=== PATIENT | female | born 1960 | race Caucasian/White ===

== ENCOUNTER 2017-08-14 08:18 | Inpatient (IN) | payer OTHER ==
[~2017-08-14] VITALS: Ht 177.8 cm; Wt 91.2 kg
[~2017-08-14 08:18] MED LIST: ADULT LOW DOSE81 MG PO; LIPITOR10 MG PO; TOPROL XL100 MG PO
[2017-08-14 08:25] VITALS: BP 128/71
[2017-08-14] MEDS ORDERED: SYNTHROID150 MCG PO (08:30)
[2017-08-14 09:05] LABS: CALCIUM 8.3 mg/dL (8.5-10.1)
[2017-08-14 09:17] LABS: ALBUMIN 2.8 g/dL (3.4-5.0); TOTAL BILIRUBIN 0.9 mg/dL (<0.1-1.0); TOTAL PROTEIN 7.2 g/dL (6.4-8.2); TROPONIN-I LEVEL 0.08 ng/mL (<0.06)
[2017-08-14 09:19] LABS: HEMATOCRIT 26.2 % (37.0-47.0); HEMOGLOBIN 7.3 gm/dL (12.0-15.0); MCH 18.8 pg (26.0-34.0); MCV 67.2 fL (80.0-100.0); MPV 8.8 fl. (7.2-11.1); NUCLEATED RBCS 0 /100WBC; PLATELET COUNT* 290 thou/uL (150-400); RDW-CV 21.8 % (10.5-14.5); WBC 15.5 thou/uL (4.0-11.0)
[2017-08-14 09:37] LABS: ABSOLUTE LYMPHOCYTES 2.9 thou/uL (0.8-5.3); ABSOLUTE MONOCYTES 1.1 thou/uL (0.0-1.2); ABSOLUTE NEUTROPHILS 11.5 thou/uL (1.6-8.1); HYPOCHROMASIA 2+; PLATELET ESTIMATE ADEQUATE; POLYCHROMASIA 1+
[2017-08-14 09:38] LABS: ANISOCYTOSIS 2+; MICROCYTES 2+; POIKILOCYTOSIS 1+; TARGET CELLS 1+
[2017-08-14 12:19] LABS: URINE BILIRUBIN NEGATIVE (Negative); URINE BLOOD 2+ (Negative); URINE CLARITY CLEAR; URINE COLOR YELLOW; URINE GLUCOSE-RANDOM NEGATIVE (Negative); URINE KETONES NEGATIVE (Negative); URINE LEUKOCYTES-REFLEX NEGATIVE (Negative); URINE NITRITE-REFLEX NEGATIVE (Negative); URINE PROTEIN NEGATIVE (Negative); URINE UROBILINOGEN 0.2 E.U./dl (0.2-1.0)
[2017-08-14 12:28] LABS: SQUAMOUS >10 Many /LPF (0-3)
[2017-08-14 12:29] LABS: BACTERIA-REFLEX 1-9 Few /HPF (None Seen); CASTS None Seen /LPF (None Seen); CRYSTALS None Seen /LPF (None Seen); MUCUS 0-3 Light strn/LPF (None Seen); URINE RBC 0-2 Rare /HPF (0-2); URINE WBC-REFLEX 0-5 Rare /HPF (0-5)
[2017-08-14 13:56] VITALS: BP 130/82
[2017-08-14 14:30] VITALS: BP 151/83
--- NOTE | 2017-08-14 14:30 | NUR ---
PT UP TO ROOM 233. CALL LIGHT WITHIN REACH. PT ORIENTED TO ROOM.
--- NOTE | 2017-08-14 16:01 | EKG ---
[place] [address] ELECTROCARDIOGRAM REPORT Name: FREDI URRUTIA Room: [place] [address] ADM IN .R.#: [id number] Admission: 08/14/17 Attend Phys: Chi Lunsford MD Discharge: Date of : 58 Report #: [id number] THIS REPORT FOR: //name// [facility] Test Date: 2017-08-14 Test Time: 08:51:17 Pat Name: FREDIKENISHA URRUTIA Department: Room: [facility] Gender: F [employer] Coordinator: : 1960 Requested By: Edwin Sears Order Number: [id number] MD: Chito Zapien Measurements Intervals [place] Rate: 114 P: 69 HI: 149 QRS: 62 QRSD: 103 T: 15 QT: 340 QTc: 469 Interpretive Statements Sinus tachycardia Minimal ST depression, diffuse leads Compared to ECG 07/25/2016 08:08:46 ST (T wave) deviation now present Sinus rhythm no longer present Electronically Signed On 08-14-2017 16:00:53 CDT by Chito Zapien [email or web address] <ELECTRONICALLY SIGNED> By: Chito Zapien MD, FACC 08/14/17 1600 [phone] Chito Zapien MD, [facility] /EPI
--- NOTE | 2017-08-14 17:28 | NUR ---
PT UP TO FLOOR THIS AFTERNOON. IVF INFUSING. TOLERATING PO WELL. DENIES DIZZINESS. SOA WITH EXERTION
[2017-08-14 20:00] VITALS: BP 136/75
[2017-08-15] VITALS: BP 113/69
--- NOTE | 2017-08-15 03:12 | NUR ---
PT ALERT ORIENTED. UP AD DANI IN ROOM. TELEMETRY SHOWS ST. FEVER SPIKED 102.3. CULTURES ALREADY SENT EXCEPT FOR SPUTUM. UNABLE TO COLLECT. TYLENOL GIVEN. PT ALSO HAD EPISOID OF NAUSIA AT BEDTIME. ZOFRAN GIVEN FOR THAT. REFUSED GUAIFENESIN BECAUSE OF NAUSIA. WILL CONTINUE TO MONITOR.
[2017-08-15 04:00] VITALS: BP 128/65
[2017-08-15 08:00] VITALS: BP 139/84
[2017-08-15 09:14] LABS: HEMATOCRIT 21.9 % (37.0-47.0)
[2017-08-15 09:17] LABS: HEMOGLOBIN 6.1 gm/dL (12.0-15.0)
[2017-08-15 11:10] LABS: HEMATOCRIT 21.9 % (37.0-47.0)
[2017-08-15 11:14] LABS: HEMOGLOBIN 6.2 gm/dL (12.0-15.0)
[2017-08-15 11:29] LABS: APTT 28.7 Seconds (25.0-31.3); INR 1.1; PROTIME 10.7 Seconds (9.20-11.50)
[2017-08-15 11:53] VITALS: BP 114/61
--- NOTE | 2017-08-15 13:12 | NUR ---
CM SPOKE TO THE PATIENT TO DISCUSS HOME SITUATION, DISCHARGE PLANNING, AND TO INFORM OF THE ROLE OF CM. PATIENT ALERT AND ORIENTED. PATIENT INDEPENDNET AND ACTIVE. PATIENT WORKS OUTSIDE THE HOME. PATIENT RESIDES AT HOME WITH SPOUSE. PATIENT OWNS 0 DME. PATIENT HAS NO HX OF H OR SNF. CM WILL REMAIN AVAILABLE TO ASSIST AND FOLLOW NEEDED.
[2017-08-15 13:44] VITALS: BP 117/73; BP 121/72; BP 124/72; BP 127/77
[2017-08-15 15:08] LABS: ANA INTERPRETATION Positive (Negative)
--- NOTE | 2017-08-15 18:01 | NUR ---
VSS. SINUS TACH. NO PAIN REPORTED. UP AD DANI, PT STAYS IN BED. EATING ADEQUATELY. IN ROOM ENTIRE SHIFT. PT LEFT WITH NECESSARY ITEMS IN REACH. HGB 6.2, PT RECIEVED UNIT OF BLOOD, LABS YET TO BE DRAWN.
[2017-08-15 18:45] LABS: HEMATOCRIT 25.5 % (37.0-47.0); HEMOGLOBIN 7.6 gm/dL (12.0-15.0)
[2017-08-16] VITALS: BP 113/67
--- NOTE | 2017-08-16 01:24 | NUR ---
ALERT AND ORIENTED X 4. NAUSEATE EARLIER IN THE SHIFT. ZOFRAN GIVEN. SLEEPING MOST OF SHIFT. DENIES COMPLAINTS OF PAIN OR DISCOMFORT. NO SIGN OF DISTRESS AT THIS TIME. CONT. WITH PLAN OF CARE AT THIS TIME.
[2017-08-16 04:00] VITALS: BP 146/80
[2017-08-16 05:32] LABS: ABSOLUTE BASOPHILS 0.1 thou/uL (0.0-0.2); ABSOLUTE EOSINOPHILS 0.1 thou/uL (0.0-0.7); ABSOLUTE LYMPHOCYTES 2.3 thou/uL (0.8-5.3); ABSOLUTE MONOCYTES 1.6 thou/uL (0.0-1.2); ABSOLUTE NEUTROPHILS 9.4 thou/uL (1.6-8.1); HEMATOCRIT 25.8 % (37.0-47.0); HEMOGLOBIN 7.6 gm/dL (12.0-15.0); LYMPHOCYTES 16.9 %; MCH 20.8 pg (26.0-34.0); MCHC 29.6 g/dL (28.0-37.0); MCV 70.4 fL (80.0-100.0); MONOCYTES 11.7 %; MPV 8.7 fl. (7.2-11.1); NUCLEATED RBCS 0 /100WBC; PLATELET COUNT* 271 thou/uL (150-400); POLYS 69.4 %; RBC 3.66 mil/uL (4.20-5.00); RDW-CV 23.1 % (10.5-14.5); WBC 13.5 thou/uL (4.0-11.0)
[2017-08-16 05:46] LABS: ALBUMIN 2.3 g/dL (3.4-5.0); CALCIUM 7.6 mg/dL (8.5-10.1); MAGNESIUM 1.7 mg/dL (1.8-2.4); POTASSIUM 3.8 mmol/L (3.5-5.1); TOTAL BILIRUBIN 0.8 mg/dL (<0.1-1.0); TOTAL PROTEIN 5.8 g/dL (6.4-8.2)
[2017-08-16 06:15] LABS: PLATELET ESTIMATE ADEQUATE
[2017-08-16 06:16] LABS: HYPOCHROMASIA 2+; MICROCYTES 2+; POLYCHROMASIA 1+; TARGET CELLS Occasional
[2017-08-16 06:17] LABS: ANISOCYTOSIS 2+; POIKILOCYTOSIS 1+
--- NOTE | 2017-08-16 06:55 | NUR ---
PATIENT HAS SPOT TB TEST ORDERED. PLACED IN ISOLATION AND EDUCATION TO PATIENT.
[2017-08-16 08:00] VITALS: BP 127/86
--- NOTE | 2017-08-16 11:51 | CON ---
[address] [address] CONSULTATION Name: FREDI URRUTIA Room: [address] IN M.R.#: [id number] Admission: 08/14/17 Attend Phys: Chi Lunsford MD Discharge: Date of : 58 Report #: [id number] THIS REPORT FOR: //name// CC: Chi Lucero DATE OF SERVICE: 08/15/2017 INFECTIOUS DISEASE CONSULTATION ATTENDING PHYSICIAN: Chi Lunsford M.D. REASON FOR EVALUATION: Pneumonitis setting of chronic fevers. HISTORY OF PRESENT ILLNESS: Chart reviewed, patient examined. This is a 57-year-old with history of Graves' disease who presented with early progression of dyspnea, had noted fevers and palpitations with racing heart rate as well. On evaluation was found to be anemic for unclear reasons. Imaging suggested bilateral patchy infiltrates. She was then started empirically on Rocephin and azithromycin. On questioning, she denies any particular exposure history; however, she does note that fevers may have started as early as April of this year. They have been slowly progressing over the course of the last 2-3 weeks has had progressive weakness and then the shortness of breath more recently. She did not have a significant cough. She is not aware of weight loss. Her appetite has been fair. Followup imaging suggests bilateral pulmonary emboli. She is encephalopathic. ALLERGIES: None known. MEDICINES: Include cefdinir, azithromycin, guaifenesin, levothyroxine, aspirin, metoprolol, p.r.n. analgesics, antiemetics, melatonin, did receive ceftriaxone as well. PAST MEDICAL HISTORY: Graves' disease, history of hypertension, previous TIA. SOCIAL HISTORY: Nonsmoker, fairly regular ethanol use. FAMILY HISTORY: Noncontributory. REVIEW OF SYSTEMS: As above. Denies any pulmonary related, gastrointestinal related complaints other than what is noted above. PHYSICAL EXAMINATION:: GENERAL: Appears adequately nourished, in mild distress. VITAL SIGNS: T-max of 102.3, more recently 97.7, pulse 102, respirations 20, blood pressure 114/61[place] [address] CONSULTATION Name: FREDI URRUTIA Catherine Room: [address]#: [id number] Admission: 08/14/17 Attend Phys: Chi Lunsford MD Discharge: Date of : 58 Report #: [id number] SKIN: Warm, dry, no rashes. HEENT: Unremarkable. NECK: Supple. LUNGS: Diminished breath sounds. HEART: Regular, may have soft systolic murmur. ABDOMEN: Soft, nontender, nondistended. EXTREMITIES: No cyanosis. GENITOURINARY: Deferred. RECTAL: Deferred. LABORATORY DATA: Lactic acid initially was 3.2, certainly down to 2.3. Chest x-ray showed mild patchy alveolar opacities in the left lung. Electrolytes: Sodium 137, potassium 3.0, chloride 101, bicarbonate is 23, anion gap of 13. BUN and creatinine 7 and 1.0, glucose of 148, AST of 144, ALT of 96, albumin 2.9, total protein 7.2, estimated GFR 57. CBC: White count of 15.5, H and H 7.3 and 26.2, platelets of 290, did have 2900 lymphocytes. TSH elevated at 7.260. Urinalysis, 0-5 white cells. Iron was 15. Saturation was 5%. Ferritin 105. Urinary antigens for legionella and pneumococcus were not detected in prealbumin 9.4. Blood cultures sterile thus far. CT chest showed bilateral pulmonary emboli involving segmental and subsegmental branches in all 5 lobes, patchy mass-like infiltrates, bilateral lower lobes. CT abdomen and pelvis was otherwise unrevealing. ASSESSMENT AND PLAN: Pneumonitis in the setting of pulmonary emboli. This certainly could explain ongoing fevers. I suspect this may have occurring over weeks to months. In addition to the pulmonary embolus, she has anemia and certainly raises question of occult process as this may well be complications leading to a hypercoagulable state. Continue empiric antimicrobial therapy. I do not think there is any sputum forthcoming. We will go ahead and check some lab related to potential cause of hepatitis, have a peripheral smear done as well. We will monitor expectantly. <ELECTRONICALLY SIGNED> By: August Woo MD 08/16/17 1151 [id number] [id number] Woo MD /nt
[2017-08-16 12:00] VITALS: BP 119/80
--- NOTE | 2017-08-16 16:17 | NUR ---
AFTER DISCUSSING WITH DR HOPPER AND INFECTIOUS DISEASE AND REVIEWING POLICY THERE IS NO NEED FOR ISOLATION. PT REMOVED FROM ISOLATION. GI NOTIFIED. WILL CONTINUE PLAN FOR EGD/COLONOSCOPY
--- NOTE | 2017-08-16 18:29 | NUR ---
PT UP IN ROOM WITH STEADY GAIT. PT DENIES PAIN OR COUGH. PLAN FOR EGD/COLONOSCOPY IN AM. PT TOLERATING PO WELL
[2017-08-16 20:00] VITALS: BP 113/63
[2017-08-17] VITALS (7 sets, daily range): BP systolic 116–137; BP diastolic 63–74
--- NOTE | 2017-08-17 01:49 | NUR ---
PATIENT ALERT AND ORIENTED X 4, IV IRON INFUSION ORDERED ON DAY SHIFT BUT WASN'T AVAILABLE UNTIL YESTERDAY EVEN. IV IRON INFUSED WITHOUT DIFFICULTIES. PATIENT IS RESTING COMFORTABLY, WILL CONT. TO MONITOR.
[2017-08-17 04:06] LABS: CMV IgM Abs <30.0 AU/mL (0.0-29.9)
[2017-08-17 07:10] LABS: HEPATITIS B SURFACE AG Negative (Negative)
--- NOTE | 2017-08-17 15:14 | CON ---
[address] [address] CONSULTATION Name: FREDI URRUTIA Room: [place] [address] ADM IN [facility]#: [id number] Admission: 08/14/17 Attend Phys: Chi Lunsford MD Discharge: Date of : 58 Report #: [id number] THIS REPORT FOR: //name// CC: Chi Lucero DATE OF SERVICE: 08/16/2017 ATTENDING PHYSICIAN: Chi Lunsford MD The patient is located in room 233. INDICATION FOR CONSULTATION: Pulmonary emboli and then left lower lobe infiltrate. HISTORY OF PRESENT ILLNESS: The patient is a 57-year-old female, essentially nonsmoker, sent to the Emergency Room because of shortness of breath and cough. She has had some low-grade fever over 2-3 months this year, started out at 99, slowly gotten the higher to 102 degrees usually every evening, but she denies any drenching night sweats. She felt bad when she had the fever. She has not had much of a fever when she has been in the hospital. About 36 hours ago, she had a CAT scan of the chest and followup for her chest x-ray which showed a patchy left lower lobe infiltrate and also right lower lobe infiltrate. Her previous chest x-ray from July 2016 that I reviewed was within normal limits. She then on this CAT scan of her chest, which was not a CT angio of the chest had multiple pulmonary emboli in the left lower lung ramos and also in the right lower lobe interlobar artery and left lower lobe interlobar artery and there were several of them. It was not an occlusive clot, but definitely some clots were noted. She denies having DVT and she has not had venous Dopplers done yet. She has had anemia, so she has been more short of breath when she walks across the room. She denies any prior history of pneumonia or asthma. No other occupational exposure. I was asked to see her. PAST MEDICAL HISTORY: She has had a history of anemia for the past 6 months. She has had a workup, etiology is unclear. She had a TIA back in July 2016. Again, etiology was uncertain. She has had elevated troponin levels and again possible stroke. Questionable history of Graves disease in the past, treated with radioactive therapy and then hypertension and TIAs noted. ALLERGIES: She has no known medical allergies. OUTPATIENT MEDICATIONS: Included aspirin 81 mg daily, Lipitor 10 mg at bedtime and was also on metoprolol 100 mg daily and levothyroxine 150 mcg daily. FAMILY HISTORY: Negative for [place] [address] CONSULTATION Name: GHADAFREDI Catherine Room: [address] IN ..#: [id number] Admission: 08/14/17 Attend Phys: Chi Lunsford MD Discharge: Date of : 58 Report #: [id number] SOCIAL HISTORY: The patient works in [employer]. She is a nonsmoker, nondrinker. She tried it when she was in high school, but never smoked for more than 3-6 months. Denies any alcohol or illicit drug use. Her is a nonsmoker also. She lives at home with her . REVIEW OF SYSTEMS: A 14-point review of systems was reviewed and negative. She denies any occupational exposure. No exposure to histoplasmosis or TB and has never had any lung infections before as noted above. No history of recent travel. PHYSICAL EXAMINATION: GENERAL: A 57-year-old female in no acute distress. VITAL SIGNS: Stable. Blood pressure is 127/86 on no pressors, heart rate is 88, respirations are 16 at rest and her temperature is 36.2 degrees. She is 5 feet 10 inches tall, weight is 86 kilograms or 189 pounds. BMI is 27. Room air sats 95-96%. HEENT: Unremarkable. No increase in jugular venous pressure. Pharynx is clear. NECK: Supple without nodes. CHEST: Shows a few rhonchi and minimal dullness at the left lung base. Right chest is clear without wheeze or rhonchi. CARDIOVASCULAR: Regular rate and rhythm without murmur, gallop or rub. Heart rate is 88. No S3 is noted. ABDOMEN: Soft, without masses or megaly. DIAGNOSTIC DATA: CT of the chest was noted as above with bilateral pulmonary emboli and right lower lobe and left lower lobe interlobar arteries. No definite pulmonary hypertension noted. No masses or tumor. She has a left lower lobe infiltrate, which could be a possible infarct and a small left effusion. Patchy right lower lobe infiltrate is also noted. Chest x-ray was noted as above. LABORATORY DATA: Initial hemoglobin was 6.2 a day or two ago. Today is 7.6, white count is 13,500, hematocrit is 25 and MCV was 70. Iron studies are pending. Platelets are 271,000, normal differential. Sodium is 141, potassium is 3.8, carbon dioxide is 21, BUN is 3, creatinine is 1.0, glucose is 109, magnesium is 17, being repeated, calcium 7.6, being followed and total bilirubin 0.8, AST is elevated at 182, ALT is 128. Troponin is barely bumped at 0.08, albumin is 2.3 and prealbumin is 9.4. TSH is 7.26, slightly high. IMPRESSION: 1. Bilateral pulmonary emboli, atypical setting. 2. Pulmonary infiltrates, left lower lobe infiltrate, small left effusion, etiology unclear whether this is acute infectious etiology related to pulmonary infarct or collagen vascular disease or auto inflammatory [place] [address] CONSULTATION Name: FREDI URRUTIA Room: [address] IN .R.#: [id number] Admission: 08/14/17 Attend Phys: Chi Lunsford MD Discharge: Date of : 58 Report #: [id number] are pending. Acute are also pending and histo is pending. Rheumatoid factor is negative. GREG was positive and we do not have a titer. Her titer is pending. Rheumatoid factor was negative. PLAN: Would continue with therapy. Also, on Lovenox 80 mg subQ q.12 hours. I think it is appropriate high dose therapy. TIA history bothers me a little bit, but she was on aspirin for that. So hopefully, she would not have any bleeding diathesis. She understands that. Would either treat 6 months with warfarin or NOAC such as Xarelto. Need to follow up chest x-ray and CT of the chest in about a month to see if she has any further pulmonary emboli. Also see if that left lower lobe infiltrate is cleared. If not, she may be stable enough at that time to take her off the Xarelto for a couple days, may bridge with Lovenox and see about doing an outpatient bronchoscopy looking at the left lower lobe, again some cultures and specimens whether this is a collagen vascular disease or whatever may have predisposed her to have pulmonary emboli. I do not think this represents lung cancer at least at this time. CT of the abdomen was negative. She has no history of any hypercoagulable family members. May consider hypercoagulable workup in the future if this would recur again. Also, an echocardiogram at some point in time, I think venous Dopplers are going to be checked also. Thanks for allowing me to participate in this interesting lady's care. We will follow up along with you while she is in the hospital and we will proceed from there. No need for steroid therapy at least at this time. She is on oral antibiotics with azithromycin and cefdinir at this time. She will follow with that. <ELECTRONICALLY SIGNED> By: Nguyễn Etienne MD 08/17/17 1514 1204 [id number] Etienne MD /nt
[2017-08-17 17:56] LABS: HEMATOCRIT 30.2 % (37.0-47.0); HEMOGLOBIN 8.8 gm/dL (12.0-15.0); MCH 20.4 pg (26.0-34.0); MCV 70.4 fL (80.0-100.0); MPV 8.3 fl. (7.2-11.1); RBC 4.29 mil/uL (4.20-5.00); RDW-CV 23.8 % (10.5-14.5); WBC 18.5 thou/uL (4.0-11.0)
[2017-08-17 18:03] LABS: APTT 31.1 Seconds (25.0-31.3); INR 1.1; PROTIME 10.6 Seconds (9.20-11.50)
--- NOTE | 2017-08-17 18:57 | NUR ---
PATIENT RESTING IN BED. PATIENT WENT FOR EGD/COLONOSCOPY THIS AFTERNOON WITHOUT INCIDENT. PATIENT HAS GOOD APPETITE UPON RETURN. PATIENT IS UP AD DANI IN ROOM. PATIENT SCHEDULED FOR BRONCHOSCOPY TOMORROW, CONSENT SIGNED. PATIENT HAS COMPALINTS OF MILD PAIN WITH COUGHING TO RIGHT LUNG, TYLENOL GIVEN. PATIENT STARTED ON HEPARIN DRIP THIS EVENING, WITH ORDERS TO HOLD 3 HOURS PRIOR TO BRONCHOSCOPY. PATIENT DENIES ANY NEEDS AT THIS TIME. CALL LIGHT WITHIN REACH. WILL CONTINUE TO MONITOR.
[2017-08-18] VITALS: BP 140/78
[2017-08-18 00:37] LABS: ABSOLUTE BASOPHILS 0.1 thou/uL (0.0-0.2); ABSOLUTE LYMPHOCYTES 0.9 thou/uL (0.8-5.3); ABSOLUTE MONOCYTES 0.3 thou/uL (0.0-1.2); ABSOLUTE NEUTROPHILS 14.1 thou/uL (1.6-8.1); BASOPHILS 0.5 %; EOSINOPHILS 0.1 %; HEMATOCRIT 28.2 % (37.0-47.0); HEMOGLOBIN 8.4 gm/dL (12.0-15.0); LYMPHOCYTES 5.9 %; MCH 20.6 pg (26.0-34.0); MCHC 29.6 g/dL (28.0-37.0); MCV 69.5 fL (80.0-100.0); MONOCYTES 1.7 %; MPV 8.6 fl. (7.2-11.1); NUCLEATED RBCS 1 /100WBC; PLATELET COUNT* 297 thou/uL (150-400); POLYS 91.8 %; RBC 4.06 mil/uL (4.20-5.00); RDW-CV 23.8 % (10.5-14.5); WBC 15.3 thou/uL (4.0-11.0)
[2017-08-18 01:13] LABS: ALBUMIN 2.3 g/dL (3.4-5.0); CALCIUM 8.2 mg/dL (8.5-10.1); CREATININE 0.8 mg/dL (0.6-1.3); POTASSIUM 3.2 mmol/L (3.5-5.1); TOTAL BILIRUBIN 0.5 mg/dL (<0.1-1.0)
[2017-08-18 04:00] VITALS: BP 129/80
--- NOTE | 2017-08-18 05:50 | NUR ---
VSS. NPO since [place] for bronchoscopy today. Denies complaints. Remains on Heparin gtt. Will continue to monitor.
[2017-08-18 08:00] VITALS: BP 134/83
[2017-08-18 11:10] LABS: ANTI-DNA SCREEN 1 IU/mL (0-9); ANTI-RNP <0.2 AI (0.0-0.9)
--- NOTE | 2017-08-18 11:58 | NUR ---
RECEIVED REPORT FROM LUKE ESTRELLA. ASSUMED CARE OF PT AROUND 0730. PT A&O X4, A BIT ANXIOUS ABOUT UPCOMING BRONCHOSCOPY TODAY. REASSURANCE GIVEN. VSS. O2 SAT 93% ON RA. CARDAIC MONITOR IN PLACE TRACING ST. AM ASSESSMENT AND VITALS COMPLETED CHARTED. PT NPO FOR BRONCHOSCOPY. PT DENIES PAIN OR DISCOMFORT SO FAR THIS SHIFT. PT UP AD DANI IN ROOM, TOOK SHOWER THIS AM. AT BEDSIDE. PT CURRENTLY DOWNSTAIRS FOR PROCEDURE.
--- NOTE | 2017-08-18 12:04 | NUR ---
CONTINUE TO FOLLOW, PT OFF UNIT FOR BRONCH. MET WITH SPOUSE. HE DENIES ANY CONCERNS OR DC NEEDS AT THIS TIME. HE STATES PT IS HOPEFUL TO GO HOME SOON
[2017-08-18 14:05] VITALS: BP 134/77
--- NOTE | 2017-08-18 15:58 | NUR ---
PT RETURNED TO TELE FLOOR AROUND 1400. VSS. PT A&OX4. O2 93% ON RA, PLACED ON 1L PER NC AND SATS INCREASED TO 94%. PT PROGRESSED TO CLEAR LIQUIDS AND DOING WELL WITH THAT. WILL HAVE REGULAR DIET FOR DINNER. HEPARIN RESTARTED AT 1500UNITS/HR PER ORDER FROM DR. ISAAC - ORDER RECEIVED TO NOT GIVE ADDITIONAL BOLUS. ORDER ALSO RECEIVED TO STOP HEPARIN GTT ONE HOUR POST XARALTO ADMINISTRATION. PT CURRENTLY RESTING IN BED WITH AT BEDSIDE. CALL LIGHT IS WITHIN REACH. LOW RISK FALL PRECAUTIONS ARE IN PLACE. WCTM FOR DURATION OF SHIFT. HOURLY ROUNDING PERFORMED.
[2017-08-18 16:00] VITALS: BP 104/56; BP 98/60
--- NOTE | 2017-08-18 19:25 | NUR ---
VSS. PT REMAINS A&O X4. O2 SAT 94%, NOW ON RA. PT ATE DINNER WITHOUT ISSUE. GAG AND SWALLOW REFLEX FULLY INTACT. IV PATENT AND INFUSING HEPARING AND IVF. PT DENIES PAIN OR DISCOMFORT. AT BEDSIDE THROUGHOUT SHIFT BUT HAS SINCE GONE HOME. PT UP AD DANI IN ROOM. PT HOPING TO GO HOME TOMORROW. PT LEFT RESTING IN BED WATCHING TV. CALL LIGHT IS WITHIN REACH, LOW FALL RISK PRECAUTIONS IN PLACE. HORULY ROUNDING PERFORMED.
[2017-08-18 19:40] VITALS: BP 117/63
[2017-08-19 00:26] VITALS: BP 134/97
[2017-08-19 04:47] VITALS: BP 134/77
--- NOTE | 2017-08-19 06:16 | NUR ---
Pt states she is anticipating being discharged today. Heparin gtt running until one hour after first dose of Xarelto last night. Up ad baudilio in room. VSS. Requested Tylenol for c/o sore throat secondary to procedure. Will continue to monitor.
[2017-08-19 08:00] VITALS: BP 127/76
[2017-08-19] MEDS ORDERED: FOLIC ACID1 MG PO (09:37)
[2017-08-19] MEDS ORDERED: VENTOLIN HFA 1818 GM INH (09:37)
[2017-08-19] MEDS ORDERED: XARELTO15 MG PO (09:37)
[2017-08-19] MEDS ORDERED: CEFDINIR300 MG PO (09:37)
[2017-08-19] MEDS ORDERED: IRON325 PO (09:37)
[2017-08-19] MEDS ORDERED: MUCINEX600 MG PO (09:37)
[2017-08-19] MEDS ORDERED: XARELTO20 MG PO (09:37)
[2017-08-19 10:36] VITALS: BP 127/76
--- NOTE | 2017-08-19 11:02 | NUR ---
Pt discharging to home today. CM provided Pt with Xarelto copay card. in room and will transport
--- NOTE | 2017-08-19 11:07 | NUR ---
RECEIVED REPORT FROM SAMEER BUTLER. ASSUMED CARE OF PT AROUND 729. PT A&O X4, VSS, O2 SAT >90% ON RA. EMPLOYMENT REPRESENTATIVE IN PLACE TRACNIG SR. AM ASSESSMENT AND VITALS COMPLETED CHARTED. PT ANXIOUS TO GET HOME. PT EATING AND DRINKING WIHTOUT ISSUE. PT REPORTS SLIGHT HEADACHE THAT HAS MUCH IMPROVED WITH PAIN MEDICATION GIVEN BY NIGHT NURSE. SPOUSE AT BEDSIDE. DISCHARGE ORDERS RECEIVED. DISCHARGE COMPLETED CHARTED. DISCHARGE SUMMARY GONE OVER WITH PT. PT COMMUNICATES UNDERSTANDING. PT AWARE OF F/U APPOINTMENTS. SCRIPTS GIVEN. CARE NOTES GIVEN. IV AND EMPLOYMENT REPRESENTATIVE REMOVED. ALL BELONGINGS GATHERED AND SENT WITH THE PT. VSS AT TIME OF DC. PT LEFT UNIT IN WC WITH NURSING STAFF. PT LEFT HOSPITAL IN CAR WITH SPOUSE.
--- NOTE | 2017-08-21 07:55 | PROC ---
[address] [address] PROCEDURE REPORT Name: FREDI URRUTIA Catherine Room: [address] IN [facility]#: [id number] Admission: 08/14/17 Attend Phys: Chi Lunsford MD Discharge: 08/19/17 Date of : 58 Report #: [id number] THIS REPORT FOR: //name// CC: Dr. Martha Lucero MD DATE OF SERVICE: 08/18/2017 PROCEDURE: Inpatient bronchoscopy note. ATTENDING PHYSICIAN: Chi Lunsford MD LOCATION: She is located in room [facility]. PREOPERATIVE DIAGNOSES: Left lower lobe pneumonia, chronic fevers. POSTOPERATIVE DIAGNOSES: Left lower lobe pneumonia, chronic fevers. No endobronchial lesions, moderate secretions. COMPLICATIONS: None. INDICATIONS: The patient is a 57-year-old female, nonsmoker with fevers off and on for the last 4 months. She has some small pulmonary emboli bilaterally. She has right anterior tibial vein clots in her legs, but no deep venous thrombosis. She is on IV heparin after subcutaneous Lovenox. Her room air O2 sats are 97%. She is not able to cough up any sputum. Bronchoscopy is indicated to evaluate for endobronchial lesion to obtain specimens. Indications, benefits, risks of bronchoscopy, possible biopsy were explained to the patient. She understood and agreed. Informed consent was obtained. Prior to the procedure, the patient was n.p.o. She had appropriate verbal timeout, was correct procedure for the correct patient. She was off her heparin for 3 hours at 9:00 a.m. from an IV heparin drip. PREMEDICATION: Consists of meperidine 50 mg, Robinul 0.1 mg IM and then she had Versed 4 mg slow IV push pre and intraoperatively in 1 mg increments, also had fentanyl 50 mcg total IV push and 25 mg increments. O2 was at 4 liters per nasal cannula, O2 sats stayed at 97% throughout the procedure. DESCRIPTION OF PROCEDURE: She had bilateral boggy nasal turbinates. I was not able to get pass the scope down either nares because of the turbinates and nasal septal deviation to the right. We then used an oral bite [place] [address] PROCEDURE REPORT Name: FREDI URRUTIA Room: [address] IN [facility]#: [id number] Admission: 08/14/17 Attend Phys: Chi Lunsford MD Discharge: 08/19/17 Date of : 58 Report #: [id number] attempts, vocal cords were normal, they opposed normally. Trachea and yolis were normal. Yolis was sharp. Right lung was normal without any endobronchial lesions or mucosal abnormalities. Left lung was normal without any endobronchial lesions or mucosal abnormalities. Minimal erythema was noted in the left lower lobe. She had some moderate thin clear secretions. Specimens obtained from left lower lobe include a microbrush and a bronchial wash for Gram stain, C and S, AFB or smear and culture and fungal smear with culture. Slides x 3 and a second bronchial wash were sent from cytology to rule out collagen vascular disease and possibly infectious or inflammatory etiologies. Malignancy was thought to be less likely, but still considered. Bronchoscope was then withdrawn without incident. The patient tolerated the procedure well without complications. Working diagnosis at the end of the procedure was left lower lobe pneumonia, could be related to pulmonary infarct from pulmonary emboli, could be related to collagen vascular disease and a positive GREG. The patient will call me at office in 1 week for results. If they are all negative, then we will do a followup chest x-ray in 3-4 weeks and possibly CAT scan to make sure; 1. Pulmonary emboli are resolved. 2. Her left lower lobe infiltrate clears up. No complications to the above procedure. I will defer to primary care physicians. We will put her back on IV heparin. She may be on Xarelto for a day or two. May be able to be discharged in 24-48 hours proceed from there. Again, no complications as above. <ELECTRONICALLY SIGNED> By: Britany Orosco MD 08/21/17 0755 1303 [id number] Etienne MD /nt
--- NOTE | 2017-09-01 13:09 | CON ---
[address] [address] CONSULTATION Name: FREDI URRUTIA Room: [address]#: [id number] Admission: 08/14/17 Attend Phys: Chi Lunsford MD Discharge: 08/19/17 Date of : 58 Report #: [id number] THIS REPORT FOR: //name// CC: Chi Lucero MD DICTATED BY: Dayanara Heller [facility] DATE OF SERVICE: 08/16/2017 Please note, at the time of this dictation the patient was seen and physically examined by myself. REASON FOR CONSULTATION: Acute anemia. HISTORY OF PRESENT ILLNESS: This is a 57-year-old female who presented to the Emergency Room on the with a 3-day history of worsening of shortness of air and increased fatigue. The patient waited until Monday morning to see her primary and she was advised to go to the Emergency Room at that time. Over the last 3 months since 04/24/2017, she has had a fever off and on in which she has been taking ibuprofen on a nightly basis to help with that. She has had a cough and she has had issues with heart palpitations as well. It was noted on admission she had a hemoglobin that went down to 6.1. She has gotten 1 unit of blood; she is now up to 7.6. She denies any nausea or vomiting, loss of appetite or weight loss. She states her bowels move daily, soft and formed, to every other day. She has not noticed any bright red blood or any melena at this time. The patient has never had any upper or lower endoscopy studies done at this time. She denies any abdominal pain with all of her symptomatology at the present time. ALLERGIES: No known drug allergies. MEDICATIONS: From home, have been an aspirin daily as well as metoprolol and levothyroxine. PAST MEDICAL HISTORY: She had Graves disease post radiation ablation of her thyroid and hypertension or palpitations. PAST SURGICAL HISTORY: Ablation of her thyroid. FAMILY HISTORY: Negative for any GI or female cancers. SOCIAL HISTORY: Denies any alcohol, tobacco or illegal drug use. REVIEW OF SYSTEMS: Twelve-point review [place] [address] CONSULTATION Name: FREDI URRUTIA Room: [address]#: [id number] Admission: 08/14/17 Attend Phys: Chi Lunsford MD Discharge: 08/19/17 Date of : 58 Report #: [id number] except what is mentioned in the HPI. PHYSICAL EXAMINATION: VITAL SIGNS: Temperature 36.6, pulse 100, respirations 16, blood pressure 119/80. HEART: Regular rate and rhythm. LUNGS: Clear. ABDOMEN: Soft, positive bowel sounds in all 4 quadrants with no masses or tenderness noted. LABORATORY DATA: Hemoglobin on admission was 7.3 and she dropped down to 6.1, received a unit of blood, she is back up to 7.6, hematocrit 25.8, white count on admission was 15.5, she is now 13.5, platelets 271. Sodium 141, potassium 3.8, chloride 107, CO2 of 21, BUN is 3, creatinine is 1.0, GFR is 57, and glucose is 109. Total bilirubin is 0.8, alkaline phosphatase 68, ALT 128, AST 182. Haptoglobin is 236. ESR is 60, RA is negative. GREG was positive. CT of the abdomen and pelvis showed some likely liver cyst, otherwise negative. Chest x-ray showed some mild patchy opacities mainly in the left. CT of the chest confirmed bilateral PEs. Ultrasound of the legs is still pending. IMPRESSION: 1. Acute anemia, noted that in 07/2016 hemoglobin was 14.8. 2. Elevated liver function tests. 3. Bilateral pulmonary embolism. 4. Shortness of air. 5. Leukocytosis. 6. Fever of unknown origin. PLAN: 1. EGD and colonoscopy tomorrow with Dr. Higuera. 2. Acute hepatitis panel pending. We will order ASMA and AMA due to the positive GREG. 3. Further recommendations to be made after the above has been noted. 4. Hold aspirin and Lovenox tonight and in a.m. Thank you for allowing us to participate in this patient's care. Please do not hesitate to call with any questions in regard to this consult. I have personally seen and examined the patient and reviewed labs and imaging studies. The patient with bilateral pulmonary embolism who presents with acute anemia with hemoglobin of 6.2 and abnormal transaminases, 3-4 times normal, with normal alkaline phosphatase and bilirubin. There is a concern that the patient may also have TB and she is undergoing testing. Initially our nurse practitioner had scheduled the patient for EGD and colonoscopy; I will defer this at this time. We will await the result of [place] [address] CONSULTATION Name: FREDI URRUTIA Room: [address] IN M.R.#: [id number] Admission: 08/14/17 Attend Phys: Chi Lunsford MD Discharge: 08/19/17 Date of : 58 Report #: [id number] bronchoscopy on Monday. Based on finding we will make recommendation. Meanwhile, we will continue monitoring the H and H and transfuse as needed. <ELECTRONICALLY SIGNED> By: Mirna Albarran MD 09/01/17 1309 1331 [id number] Albarran MD /nt
--- NOTE | 2017-09-01 13:09 | CON ---
[address] [address] CONSULTATION Name: GHADAFREDI Catherine Room: [address] IN ..#: [id number] Admission: 08/14/17 Attend Phys: Chi Lunsford MD Discharge: 08/19/17 Date of : 58 Report #: [id number] THIS REPORT FOR: //name// CC: Chi Lucero DATE OF SERVICE: 08/16/2017 ADDENDUM I have personally seen and examined the patient and reviewed labs and imaging studies. The patient with bilateral pulmonary embolism who presents with acute anemia with hemoglobin of 6.2 and abnormal transaminases, 3-4 times normal, with normal alkaline phosphatase and bilirubin. There is a concern that the patient may also have TB and she is undergoing testing. Initially our nurse practitioner had scheduled the patient for EGD and colonoscopy; I will defer this at this time. We will await the result of TB since the patient has bronchoscopy on Monday. Based on finding we will make recommendation. Meanwhile, we will continue monitoring the H and H and transfuse as needed. <ELECTRONICALLY SIGNED> By: Mirna Albarran MD 09/01/17 1309 1524 [id number] Albarran MD /nt
== END 2017-08-19 11:21 | disposition home or self-care (01) | DRG 166 ==
LOC: M.ERS 08:18 → M.TBA-ER 10:26 → M.2W 10:26
PROVIDERS: Emergency Medicine Emergency Medical Services; Internal Medicine; Internal Medicine Gastroenterology; Specialist; ADMIT Internal Medicine
PROC: 0B9J8ZZ Drainage of Left Lower Lung Lobe, Via Natural or Artificial Opening Endoscopic (ICD-10-PCS; 2017-08-14)
PROC: 0DJD8ZZ Inspection of Lower Intestinal Tract, Via Natural or Artificial Opening Endoscopic (ICD-10-PCS; principal; 2017-08-17)
PROC: 0DB98ZX Excision of Duodenum, Via Natural or Artificial Opening Endoscopic, Diagnostic (ICD-10-PCS; principal; 2017-08-17)
PROC: 0DB68ZX Excision of Stomach, Via Natural or Artificial Opening Endoscopic, Diagnostic (ICD-10-PCS; principal; 2017-08-17)
PROC: 0BDJ8ZX Extraction of Left Lower Lung Lobe, Via Natural or Artificial Opening Endoscopic, Diagnostic (ICD-10-PCS; 2017-08-18)
DX: J15.9 Unspecified bacterial pneumonia (principal); K29.71 Gastritis, unspecified, with bleeding; I26.99 Other pulmonary embolism without acute cor pulmonale; D68.59 Other primary thrombophilia; I82.431 Acute embolism and thrombosis of right popliteal vein; I82.441 Acute embolism and thrombosis of right tibial vein; I10 Essential (primary) hypertension; J33.8 Other polyp of sinus; J34.2 Deviated nasal septum; K31.9 Disease of stomach and duodenum, unspecified; K64.4 Residual hemorrhoidal skin tags; D50.9 Iron deficiency anemia, unspecified; E05.00 Thyrotoxicosis with diffuse goiter without thyrotoxic crisis or storm; N93.9 Abnormal uterine and vaginal bleeding, unspecified; E87.6 Hypokalemia; Z79.82 Long term (current) use of aspirin; Z79.899 Other long term (current) drug therapy; Z98.891 History of uterine scar from previous surgery

== ENCOUNTER 2017-09-18 11:48 | Emergency (ER) | payer OTHER ==
[~2017-09-18] VITALS: Ht 180.3 cm; Wt 68.0 kg
[~2017-09-18 11:48] MED LIST changes: +CEFDINIR300 MG PO; +FOLIC ACID1 MG PO; +IRON325 PO; +MUCINEX600 MG PO; +SYNTHROID150 MCG PO; +VENTOLIN HFA 1818 GM INH; +XARELTO15 MG PO; +XARELTO20 MG PO
[2017-09-18 12:29] LABS: ABSOLUTE BASOPHILS 0.1 thou/uL (0.0-0.2); ABSOLUTE EOSINOPHILS 0.2 thou/uL (0.0-0.7); ABSOLUTE LYMPHOCYTES 1.9 thou/uL (0.8-5.3); ABSOLUTE MONOCYTES 0.7 thou/uL (0.0-1.2); ABSOLUTE NEUTROPHILS 7.4 thou/uL (1.6-8.1); BASOPHILS 0.7 %; EOSINOPHILS 2.4 %; HEMATOCRIT 28.6 % (37.0-47.0); HEMOGLOBIN 8.9 gm/dL (12.0-15.0); LYMPHOCYTES 18.6 %; MCH 24.9 pg (26.0-34.0); MCV 80.2 fL (80.0-100.0); MONOCYTES 6.7 %; MPV 8.9 fl. (7.2-11.1); NUCLEATED RBCS 0 /100WBC; PLATELET COUNT* 288 thou/uL (150-400); POLYS 71.6 %; RBC 3.57 mil/uL (4.20-5.00); RDW-CV 23.2 % (10.5-14.5); WBC 10.3 thou/uL (4.0-11.0)
[2017-09-18 12:32] LABS: ANION GAP 12 mmol/L (7-16); APTT 33.7 Seconds (25.0-31.3); BUN 11 mg/dL (7-18); CHLORIDE 102 mmol/L (98-107); CO2 23 mmol/L (21-32); GLUCOSE 125 mg/dL (70-99); INR 1.2; POTASSIUM 3.3 mmol/L (3.5-5.1); PROTIME 11.7 Seconds (9.20-11.50); SODIUM 137 mmol/L (136-145)
[2017-09-18 12:41] LABS: ALBUMIN 3.4 g/dL (3.4-5.0); ALKALINE PHOSPHATASE 79 U/L (46-116); SGOT 62 U/L (15-37); SGPT 26 U/L (30-65); TOTAL BILIRUBIN 1.9 mg/dL (<0.1-1.0); TOTAL PROTEIN 7.8 g/dL (6.4-8.2); TROPONIN-I LEVEL <0.06 ng/mL (<0.06)
[2017-09-18 13:13] LABS: HYPOCHROMASIA 1+; PLATELET ESTIMATE ADEQUATE
[2017-09-18 13:14] LABS: ANISOCYTOSIS 1+; MACROCYTES 1+
[2017-09-18 14:17] LABS: URINE BILIRUBIN NEGATIVE (Negative); URINE BLOOD 3+ (Negative); URINE CLARITY CLEAR; URINE COLOR YELLOW; URINE GLUCOSE-RANDOM NEGATIVE (Negative); URINE KETONES NEGATIVE (Negative); URINE NITRITE-REFLEX NEGATIVE (Negative); URINE PROTEIN TRACE (Negative); URINE UROBILINOGEN 0.2 E.U./dl (0.2-1.0)
[2017-09-18 14:19] LABS: URINE LEUKOCYTES-REFLEX 3+ (Negative)
[2017-09-18 14:24] LABS: BACTERIA-REFLEX 1-9 Few /HPF (None Seen); CASTS None Seen /LPF (None Seen); CRYSTALS None Seen /LPF (None Seen); MUCUS 0-3 Light strn/LPF (None Seen); SQUAMOUS 4-10 Moderate /LPF (0-3); URINE WBC-REFLEX 6-15 Few /HPF (0-5)
[2017-09-18] MEDS ORDERED: CEFDINIR300 MG PO (15:37)
[2017-09-18 15:48] VITALS: BP 135/73
== END 2017-09-18 15:49 | disposition home or self-care (01) ==
LOC: M.ERS 11:48
PROVIDERS: Personal Emergency Response Attendant
DX: D64.9 Anemia, unspecified (principal); R06.00 Dyspnea, unspecified; I26.99 Other pulmonary embolism without acute cor pulmonale; I10 Essential (primary) hypertension; E05.00 Thyrotoxicosis with diffuse goiter without thyrotoxic crisis or storm; Z86.73 Personal history of transient ischemic attack (TIA), and cerebral infarction without residual deficits

== ENCOUNTER 2017-10-03 17:10 | Emergency (ER) | payer OTHER ==
[~2017-10-03] VITALS: Ht 177.8 cm; Wt 73.7 kg
[2017-10-03 18:07] LABS: ABSOLUTE BASOPHILS 0.1 thou/uL (0.0-0.2); ABSOLUTE EOSINOPHILS 0.1 thou/uL (0.0-0.7); ABSOLUTE MONOCYTES 0.8 thou/uL (0.0-1.2); ABSOLUTE NEUTROPHILS 8.5 thou/uL (1.6-8.1); BASOPHILS 0.9 %; HEMATOCRIT 28.9 % (37.0-47.0); LYMPHOCYTES 17.7 %; MCV 93.4 fL (80.0-100.0); MONOCYTES 6.8 %; MPV 9.5 fl. (7.2-11.1); NUCLEATED RBCS 0 /100WBC; PLATELET COUNT* 309 thou/uL (150-400); POLYS 73.6 %; RDW-CV 24.3 % (10.5-14.5); WBC 11.5 thou/uL (4.0-11.0)
[2017-10-03 18:11] LABS: ANION GAP 14 mmol/L (7-16); BUN 14 mg/dL (7-18); CHLORIDE 102 mmol/L (98-107); CO2 21 mmol/L (21-32); CREATININE 1.3 mg/dL (0.6-1.3); GLUCOSE 172 mg/dL (70-99); POTASSIUM 3.6 mmol/L (3.5-5.1); SODIUM 137 mmol/L (136-145)
[2017-10-03 18:17] LABS: ALBUMIN 3.4 g/dL (3.4-5.0); ALKALINE PHOSPHATASE 81 U/L (46-116); LIPASE 104 U/L (73-393); SGOT 45 U/L (15-37); SGPT 19 U/L (30-65); TOTAL PROTEIN 7.6 g/dL (6.4-8.2); TROPONIN-I LEVEL <0.06 ng/mL (<0.06)
[2017-10-03 18:36] LABS: POLYCHROMASIA 1+
[2017-10-03 18:37] LABS: ANISOCYTOSIS 1+; MACROCYTES 1+; PLATELET ESTIMATE ADEQUATE
[2017-10-03 19:53] LABS: URINE BLOOD 3+ (Negative); URINE CLARITY CLEAR; URINE COLOR DARK YELLOW; URINE GLUCOSE-RANDOM TRACE (Negative); URINE KETONES 1+ (Negative); URINE LEUKOCYTES NEGATIVE (Negative); URINE NITRITE NEGATIVE (Negative); URINE PROTEIN 2+ (Negative)
[2017-10-03 19:58] LABS: ICTOTEST (BILI CONFIRMATORY) Negative (Negative); URINE BILIRUBIN 1+ (Negative)
[2017-10-03 19:59] LABS: COARSE GRANULAR CASTS 0-3 Few /LPF (None Seen); HYALINE CASTS >10 Many /LPF (None Seen); MUCUS >6 Heavy strn/LPF (None Seen); WBC CASTS 0-3 /LPF
[2017-10-03 20:00] LABS: CELLULAR CASTS 0-3 Few /LPF (None Seen); SQUAMOUS 0-3 Few /LPF (0-3)
[2017-10-03 20:01] LABS: URINE RBC >20 Many /HPF (0-2); URINE WBC 6-15 Few /HPF (0-5)
[2017-10-03 20:02] LABS: AMORPHOUS URATES Few /LPF (None Seen); BACTERIA 1-9 Few /HPF (None Seen)
[2017-10-03] MEDS ORDERED: LEVAQUIN 500 M50012 PO ×2 (20:58→21:00)
[2017-10-03] MEDS ORDERED: LEVAQUIN 500 M500 M2 PO ×2 (21:06→21:13)
[2017-10-03] MEDS ORDERED: LEVAQUIN 500 M500 M9 PO (21:22)
[2017-10-03 21:44] VITALS: BP 126/61
--- NOTE | 2017-10-04 10:35 | EKG ---
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: : 1960 Requested By: Raquel Dukes Order Number: [id number] MD: Bari Rao Measurements Intervals [place] Rate: 83 P: 61 [place]: 126 QRS: 71 QRSD: 94 T: 21 QT: 383 QTc: 450 Interpretive Statements Sinus rhythm septal q waves Probable left atrial enlargement Minimal ST depression, inferior leads Compared to ECG 08/14/2017 08:51:17 Sinus tachycardia no longer present ST (T wave) deviation still present Electronically Signed On 10-04-2017 10:35:12 CDT by Bari Rao [email or web address] <ELECTRONICALLY SIGNED> By: Bari Rao MD, [facility] 10/04/17 1035 181 181 Bari Rao MD, [facility] /EPI
== END 2017-10-03 21:44 | disposition home or self-care (01) ==
LOC: M.ERS 17:10
PROVIDERS: Physician Assistant Surgical
DX: J18.9 Pneumonia, unspecified organism (principal); N39.0 Urinary tract infection, site not specified; I10 Essential (primary) hypertension; Z86.73 Personal history of transient ischemic attack (TIA), and cerebral infarction without residual deficits

== ENCOUNTER 2017-10-09 16:06 | Inpatient (IN) | payer OTHER ==
[~2017-10-09] VITALS: Ht 177.8 cm; Wt 76.2 kg
[~2017-10-09 16:06] MED LIST changes: +LEVAQUIN 500 M500 M2 PO; +LEVAQUIN 500 M500 M9 PO; +LEVAQUIN 500 M50012 PO
[2017-10-09 16:13] VITALS: BP 98/53
[2017-10-09 16:38] LABS: ABSOLUTE EOSINOPHILS 0.1 thou/uL (0.0-0.7); ABSOLUTE LYMPHOCYTES 0.6 thou/uL (0.8-5.3); ABSOLUTE MONOCYTES 0.3 thou/uL (0.0-1.2); ABSOLUTE NEUTROPHILS 2.3 thou/uL (1.6-8.1); BASOPHILS 0.7 %; EOSINOPHILS 2.7 %; HEMATOCRIT 23.6 % (37.0-47.0); HEMOGLOBIN 7.7 gm/dL (12.0-15.0); LYMPHOCYTES 19.1 %; MCHC 32.4 g/dL (28.0-37.0); MCV 89.4 fL (80.0-100.0); MONOCYTES 8.3 %; MPV 9.2 fl. (7.2-11.1); NUCLEATED RBCS 0 /100WBC; PLATELET COUNT* 166 thou/uL (150-400); POLYS 69.2 %; RBC 2.64 mil/uL (4.20-5.00); RDW-CV 19.7 % (10.5-14.5); WBC 3.4 thou/uL (4.0-11.0)
[2017-10-09 16:46] LABS: APTT 34.8 Seconds (25.0-31.3); INR 1.3; PROTIME 12.2 Seconds (9.20-11.50)
[2017-10-09 17:24] LABS: ALBUMIN 2.8 g/dL (3.4-5.0); ALKALINE PHOSPHATASE 62 U/L (46-116); ANION GAP 15 mmol/L (7-16); BUN 14 mg/dL (7-18); CALCIUM 8.3 mg/dL (8.5-10.1); CHLORIDE 101 mmol/L (98-107); CO2 21 mmol/L (21-32); CREATININE 1.1 mg/dL (0.6-1.3); GLUCOSE 124 mg/dL (70-99); NT-PRO BRAIN NAT PEPTIDE 509 pg/mL (<300); SGOT 66 U/L (15-37); SGPT 20 U/L (30-65); SODIUM 137 mmol/L (136-145); TOTAL PROTEIN 6.6 g/dL (6.4-8.2); TROPONIN-I LEVEL <0.06 ng/mL (<0.06)
[2017-10-09 20:25] VITALS: BP 110/56
[2017-10-09 21:13] LABS: URINE BILIRUBIN NEGATIVE (Negative); URINE BLOOD 3+ (Negative); URINE CLARITY CLEAR; URINE COLOR YELLOW; URINE GLUCOSE-RANDOM NEGATIVE (Negative); URINE KETONES 1+ (Negative); URINE LEUKOCYTES-REFLEX 1+ (Negative); URINE NITRITE-REFLEX NEGATIVE (Negative); URINE PROTEIN 1+ (Negative); URINE SPECIFIC GRAVITY <= 1.005 (1.005-1.030); URINE UROBILINOGEN 0.2 E.U./dl (0.2-1.0)
[2017-10-09 22:08] LABS: HYALINE CASTS 0-3 Few /LPF (None Seen); SQUAMOUS >10 Many /LPF (0-3)
[2017-10-09 22:09] LABS: BACTERIA-REFLEX >30 Many /HPF (None Seen); CRYSTALS None Seen /LPF (None Seen); URINE RBC >20 Many /HPF (0-2)
[2017-10-10 01:05] VITALS: BP 109/51
[2017-10-10 04:15] LABS: MCH 28.7 pg (26.0-34.0); MCHC 31.7 g/dL (28.0-37.0); MCV 90.5 fL (80.0-100.0); MPV 9.6 fl. (7.2-11.1); RBC 1.96 mil/uL (4.20-5.00); RDW-CV 19.9 % (10.5-14.5); WBC 2.6 thou/uL (4.0-11.0)
[2017-10-10 04:35] LABS: ALBUMIN 2.1 g/dL (3.4-5.0); CALCIUM 7.3 mg/dL (8.5-10.1); CREATININE 0.9 mg/dL (0.6-1.3); MAGNESIUM 1.5 mg/dL (1.8-2.4); POTASSIUM 3.5 mmol/L (3.5-5.1); TOTAL BILIRUBIN 1.7 mg/dL (<0.1-1.0); TOTAL PROTEIN 5.1 g/dL (6.4-8.2)
[2017-10-10 04:43] LABS: HEMATOCRIT 17.7 % (37.0-47.0); HEMOGLOBIN 5.6 gm/dL (12.0-15.0)
[2017-10-10 07:50] VITALS: BP 124/62
[2017-10-10 10:09] LABS: MCH 29.2 pg (26.0-34.0); MCHC 32.5 g/dL (28.0-37.0); MCV 89.8 fL (80.0-100.0); MPV 8.6 fl. (7.2-11.1); RBC 1.91 mil/uL (4.20-5.00); RDW-CV 19.3 % (10.5-14.5); WBC 2.7 thou/uL (4.0-11.0)
[2017-10-10 10:18] LABS: HEMOGLOBIN 5.6 gm/dL (12.0-15.0)
[2017-10-10 10:19] LABS: HEMATOCRIT 17.2 % (37.0-47.0)
--- NOTE | 2017-10-10 10:37 | EKG ---
[place] [address] ELECTROCARDIOGRAM REPORT Name: FREDI URRUTIA Room: [address] IN [facility]#: [id number] Admission: 10/09/17 Attend Phys: Michelle Mead MD Discharge: Date of : 58 Report #: [id number] THIS REPORT FOR: //name// [facility] ED Test Date: 2017-10-09 Test Time: 16:26:41 Pat Name: FREDI URRUTIA Department: Room: Gender: F Associate Partner: : 1960 Requested By: Channing Villalba Order Number: [id number] MD: Chito Zapien Measurements Intervals [place] Rate: 107 P: 83 AK: 137 QRS: 75 QRSD: 101 T: 32 QT: 399 QTc: 533 Interpretive Statements Sinus tachycardia Left atrial enlargement Anteroseptal infarct, old Minimal ST depression, diffuse leads Prolonged QT interval Compared to ECG 10/03/2017 18:11:27 Myocardial infarct finding now present Prolonged QT interval now present Sinus rhythm no longer present Q waves no longer present ST (T wave) deviation still present Electronically Signed On 10-10-2017 10:36:47 CDT by Chito Zapien [email or web address] <ELECTRONICALLY SIGNED> By: Chito Zapien MD, [facility] 10/10/17 1036 1626 Chito Zapien MD, [facility] /EPI
[2017-10-10 11:32] VITALS: BP 112/58
[2017-10-10 16:10] VITALS: BP 119/61
[2017-10-10 20:00] VITALS: BP 132/57
[2017-10-10 23:24] VITALS: BP 113/57
[2017-10-11 04:29] LABS: ABSOLUTE EOSINOPHILS 0.1 thou/uL (0.0-0.7); ABSOLUTE LYMPHOCYTES 0.6 thou/uL (0.8-5.3); ABSOLUTE MONOCYTES 0.4 thou/uL (0.0-1.2); BASOPHILS 0.5 %; LYMPHOCYTES 20.2 %; MCH 28.8 pg (26.0-34.0); MCHC 32.3 g/dL (28.0-37.0); MCV 89.1 fL (80.0-100.0); MONOCYTES 11.8 %; MPV 9.6 fl. (7.2-11.1); NUCLEATED RBCS 0 /100WBC; PLATELET COUNT* 127 thou/uL (150-400); POLYS 63.5 %; RBC 1.85 mil/uL (4.20-5.00); RDW-CV 19.5 % (10.5-14.5); WBC 3.1 thou/uL (4.0-11.0)
[2017-10-11 04:40] VITALS: BP 102/59
[2017-10-11 04:56] LABS: HEMATOCRIT 16.5 % (37.0-47.0); HEMOGLOBIN 5.3 gm/dL (12.0-15.0)
[2017-10-11 05:03] LABS: ALBUMIN 2.1 g/dL (3.4-5.0); CREATININE 0.9 mg/dL (0.6-1.3); MAGNESIUM 1.3 mg/dL (1.8-2.4); PHOSPHORUS* 2.6 mg/dL (2.5-4.9); TOTAL BILIRUBIN 1.5 mg/dL (<0.1-1.0); TOTAL PROTEIN 5.1 g/dL (6.4-8.2)
[2017-10-11 05:07] LABS: POTASSIUM 2.6 mmol/L (3.5-5.1)
[2017-10-11 07:30] VITALS: BP 103/57
[2017-10-11 13:59] VITALS: BP 104/62; BP 105/55; BP 109/57; BP 119/68; BP 125/58
--- NOTE | 2017-10-11 16:00 | CON ---
[address] [address] CONSULTATION Name: BLADIMIR URRUTIARY Catherine Room: [address] IN ..#: [id number] Admission: 10/09/17 Attend Phys: Michelle Mead MD Discharge: Date of : 58 Report #: [id number] THIS REPORT FOR: //name// CC: Malorie Mead DICTATED BY: Dayanara Heller [facility] DATE OF SERVICE: 10/10/2017 PRIMARY CARE PHYSICIAN: Malorie Lucero M.D. Please note at the time of this dictation, the patient was seen and physically examined by myself. REASON FOR CONSULTATION: Nausea, vomiting and acute anemia. HISTORY OF PRESENT ILLNESS: This is a 57-year-old female who was recently hospitalized in July for issues with DVT and PEs and noted to have acute anemia. They felt that her clot was related to control pills at the time. She underwent an EGD and colonoscopy at that EGD showed nonbleeding nonerosive gastropathy and colon showed nonthrombosed external hemorrhoids, otherwise negative. She has been seeing Dr. Dumont as an outpatient and has received several iron infusions since her discharge the end of July. No small bowel capsule has been done yet. There is no overt bleeding has been noted for her anemia. We are awaiting on a soluble transferrin receptor but that was not done. We will order at this time. Since the patient's hospitalization, she was taking iron supplementation orally during that time, which started some nausea and vomiting. The patient states that she stopped the iron supplementation on 22 of August, but her nausea and vomiting has continued. She states it occurs every time she eats. She denies any bright red blood or any coffee-ground emesis with this. Since her admission in the end of July, she has lost an additional 30 pounds. Over the last 3 weeks, she is becoming weaker and more shortness of air. She has vomiting. She has been here to the Emergency Room 2 other times, received fluids and antiemetics and then sent home, did well for a few days and then was back again. However, on this admission, she was admitted for fluids rehydration and her weakness. Hemoglobin at the time of admission was noted to be 5.6 and due to specific antibodies, her blood has to come from the blood blank directly and we are waiting on that as well. ALLERGIES: No known drug allergies. MEDICATIONS: From home include aspirin, Levaquin and Xarelto. She was also noted in one of her ER visits here recently that she had some pneumonia and that is why she was started [place] [address] CONSULTATION Name: FREDI URRUTIA Room: [address] IN [facility]#: [id number] Admission: 10/09/17 Attend Phys: Michelle Mead MD Discharge: Date of : 58 Report #: [id number] PAST MEDICAL HISTORY: Graves disease, hypertension, history of TIA, recently diagnosed with pneumonia and history of PEs and anemic and history of UTIs. PAST SURGICAL HISTORY: and tonsillectomy. FAMILY HISTORY: Negative for any GI or female cancers. SOCIAL HISTORY: Alcohol on occasion. Denies any tobacco or illegal drug use at this time. REVIEW OF SYSTEMS: Twelve-point review of systems is essentially negative except what is mentioned in the HPI. PHYSICAL EXAMINATION: VITAL SIGNS: Temperature 37.2, pulse 82, respirations 18 and blood pressure 112/58. HEART: Regular rate and rhythm. LUNGS: Diminished but clear. ABDOMEN: Soft. Positive bowel sounds in all 4 quadrants with no masses or tenderness noted. LABORATORY DATA: Hemoglobin on admission is 5.6. On admission yesterday, she was 7.7. On discharge on 18 of August, she was 8.4. On October 03, she was 9 on the ER visit. Platelets 134 and white count is 2.7. Sodium 136, potassium 3.5, chloride 106, CO2 of 23, BUN is 12, creatinine 0.9, GFR 64 and glucose 83. Total bilirubin on admission was 2 and she is down to 1.7, alkaline phosphatase 47, ALT was 20 and she is 16 now and AST was 66 and she is down to 59. PT is 12.2 and INR is 1.3. B12 is 235. TIBC was 122, iron was 26 and ferritin was normal. On last admission, her retic count was 4.8, haptoglobin was 236 and ESR was 60. IMPRESSION: 1. Nausea and vomiting. 2. Weight loss of 30 pounds. 3. Acute anemia. 4. Anticoagulant therapy, Xarelto secondary to deep venous thrombosis and pulmonary embolism. 5. Elevated liver function tests. 6. Pancytopenia. PLAN: 1. We will obtain a soluble transferrin receptor. 2. Scopolamine patch. 3. Four-hour GET. 4. Ultrasound of the abdomen secondary to increased LFTs. [address] [address] CONSULTATION Name: FREDI URRUTIA Room: [address] IN .R.#: [id number] Admission: 10/09/17 Attend Phys: Michelle Mead MD Discharge: Date of : 58 Report #: [id number] 5. Further recommendations to be made once Dr. Albarran sees the patient later today. Thank you for allowing us to participate in this patient's care. Please do not hesitate to call with any questions in regard to this consult. <ELECTRONICALLY SIGNED> By: Mirna Albarran MD 10/11/17 1600 1620 [id number] Albarran MD /nt
[2017-10-11 18:36] LABS: HEMATOCRIT 23.9 % (37.0-47.0); MCH 29.7 pg (26.0-34.0); MCHC 33.6 g/dL (28.0-37.0); MCV 88.2 fL (80.0-100.0); MPV 9.4 fl. (7.2-11.1); NUCLEATED RBCS 0 /100WBC; PLATELET COUNT* 140 thou/uL (150-400); RBC 2.71 mil/uL (4.20-5.00); RDW-CV 17.7 % (10.5-14.5)
[2017-10-11 19:24] LABS: ABSOLUTE LYMPHOCYTES 0.3 thou/uL (0.8-5.3); ABSOLUTE NEUTROPHILS 3.6 thou/uL (1.6-8.1); PLATELET ESTIMATE ADEQUATE
[2017-10-11 19:25] LABS: ANISOCYTOSIS 1+
[2017-10-11 20:18] LABS: HEMATOCRIT 24.7 % (37.0-47.0); HEMOGLOBIN 8.1 gm/dL (12.0-15.0); MCH 28.9 pg (26.0-34.0); MCHC 32.7 g/dL (28.0-37.0); MCV 88.3 fL (80.0-100.0); MPV 9.4 fl. (7.2-11.1); NUCLEATED RBCS 0 /100WBC; PLATELET COUNT* 140 thou/uL (150-400); RDW-CV 18.1 % (10.5-14.5)
[2017-10-11 20:37] LABS: ALBUMIN 2.4 g/dL (3.4-5.0); CALCIUM 7.3 mg/dL (8.5-10.1); CREATININE 0.9 mg/dL (0.6-1.3); POTASSIUM 4.3 mmol/L (3.5-5.1); TOTAL BILIRUBIN 1.7 mg/dL (<0.1-1.0); URIC ACID* 2.9 mg/dL (2.6-7.2)
[2017-10-11 21:15] LABS: ABSOLUTE LYMPHOCYTES 0.5 thou/uL (0.8-5.3); ABSOLUTE NEUTROPHILS 2.6 thou/uL (1.6-8.1)
[2017-10-11 21:17] LABS: PLATELET ESTIMATE ADEQUATE; POLYCHROMASIA 1+
[2017-10-11 21:19] LABS: ANISOCYTOSIS 1+
[2017-10-11 23:54] VITALS: BP 113/64
[2017-10-12 03:47] VITALS: BP 123/66
[2017-10-12 07:55] VITALS: BP 126/63
[2017-10-12 12:02] VITALS: BP 113/64
[2017-10-12] MEDS ORDERED: TRANSDERM-SCOP1 EACH TRANSDERM (12:20)
[2017-10-12] MEDS ORDERED: PREDNISONE 20 M20 MG PO (12:20)
[2017-10-12] MEDS ORDERED: BENTYL 10 MG CA10 M1 PO (12:20)
[2017-10-12] MEDS ORDERED: DOXYCYCLINE 10100 MG PO (13:42)
[2017-10-12 14:03] VITALS: BP 113/64
[2017-10-12 14:10] LABS: ANA INTERPRETATION Negative (Negative)
--- NOTE | 2017-10-12 15:01 | CON ---
[address] [address] CONSULTATION Name: BLADIMIR URRUTIARY Catherine Room: [address] IN .#: [id number] Admission: 10/09/17 Attend Phys: Michelle Mead MD Discharge: Date of : 58 Report #: [id number] THIS REPORT FOR: //name// CC: Malorie Mead DATE OF SERVICE: 10/10/2017 REASON FOR CONSULTATION: Anemia. REQUESTING PHYSICIAN: Michelle Mead MD HISTORY OF PRESENT ILLNESS: The patient is a pleasant 57-year-old female who has a history of recently diagnosed iron deficiency anemia. She was diagnosed with iron deficiency anemia in July 2017 and she was noted to have a colonoscopy and EGD, which was unremarkable. She was seen by Dr. Dumont for management of iron deficiency anemia. Dr. Dumont initially started her on oral iron, but she could not tolerate it because of nausea and vomiting. Dr. Dumont recommended to discontinue oral iron and give 2 infusions of intravenous iron. She received Jectofer ____ in a week after that. She tolerated the intravenous iron well. Now, she is admitted to the hospital again with anemia, nausea or vomiting. Hematology consult is requested. She is feeling better today. She does not have nausea or vomiting. She does not have chest pain, shortness of breath, headache, and dizziness. She has a history of recurrent venous thrombosis? and possible positive GREG, with lupus anticoagulant syndrome. She is on Xarelto. She does not have melena, hematochezia. She has a history of PE, TIA, stroke. She is a poor historian. She does not give a good history, but present history are from the chart review. PHYSICAL EXAMINATION: GENERAL: Reveals a well-developed, well-nourished female, not in acute distress. VITAL SIGNS: Blood pressure 119/61, heart rate is 87, temperature 100.3. HEENT: Does not any thrush. HEART: Normal S1, S2. LUNGS: Clear. ABDOMEN: Soft. LABORATORY DATA: White count 2.7, hemoglobin 5.6, platelet count 174. Ferritin was 105. ASSESSMENT AND PLAN: The patient has had intravenous iron infusion for ____ iron deficiency anemia. She has profound anemia again, treated with transfusion. She might need further evaluation for etiology of anemia. [facility] [place] [address] CONSULTATION Name: FREDI URRUTIA Room: [address]#: [id number] Admission: 10/09/17 Attend Phys: Michelle Mead MD Discharge: Date of : 58 Report #: [id number] 235. Obtain homocysteine level and methylmalonic acid. She has pancytopenia, etiology unclear. I am trying to order an ultrasound on that day. Thank you very much for allowing me to participate in the care of this patient. We will follow the patient with you. <ELECTRONICALLY SIGNED> By: Fabiola Dawson MD 10/12/17 1501 1701 [id number] Dawson MD /nt
[2017-10-12 15:43] VITALS: BP 162/69
--- NOTE | 2017-10-13 09:44 | CON ---
[address] [address] CONSULTATION Name: FREDI URRUTIA Room: [address] IN ..#: [id number] Admission: 10/09/17 Attend Phys: Michelle Mead MD Discharge: 10/12/17 Date of : 58 Report #: [id number] THIS REPORT FOR: //name// CC: Malorie Mead REASON FOR THE CONSULT: Pulmonary infiltrate. HISTORY OF PRESENT ILLNESS: This is a 57-year-old female patient with history for anemia, admitted to this facility because of anemia that was associated with the shortness of breath. She had a workup for anemia back in July that include colonoscopy and EGD that was unremarkable. She follows with Oncology as an outpatient. Back in July, she was admitted to this facility and found to have pulmonary emboli and left lower lobe infiltrate and she was treated with anticoagulation. She has been on anticoagulation since then. She had ground glass infiltrates on her initial CT scan back in July and she had left lower lobe patchy mass-like infiltrate that actually improved with the followup CT scans. She had a CT scan on September 18 that showed improvement of the pulmonary emboli with alveolar opacities and improvement in the left pleural effusion. The left lower lobe loculated infiltrates improved, but was present, then a repeat CT scan during this hospitalization on October 09 showed resolution of the emboli and persistent zone infiltrates, . The patient tells me that since hospitalization, her breathing significantly improved and she feels she is ready to go home. She has rare cough, not producing any sputum. She has no rash, but she had for the last few weeks some migratory joint pain. Initially, the right ankle then the right knee then the left knee, but it disappear spontaneously. She has no headache or blurring of vision. She has no hemoptysis. PAST MEDICAL HISTORY: Anemia with recurrent hospitalization, history of TIA, history of elevated troponin, history of Graves' disease, history of hypertension, history of TIA. ALLERGIES: None, but she has INTOLERANCE TO AUGMENTIN. SOCIAL HISTORY: Does not smoke, does not drink alcohol, does not abuse drugs. REVIEW OF SYSTEMS: A 14-point review of system reviewed with the patient and negative other than those mentioned above. HOME MEDICATIONS: Levothyroxine, metoprolol, recently finished the course of Levaquin. PHYSICAL EXAMINATION: VITAL SIGNS: On examination, she is on room air, O2 saturation 95%-100%. HEENT: Head: Normocephalic, atraumatic. Pupils reactive to light, [place] [address] CONSULTATION Name: FREDI URRUTIA Room: [address]#: [id number] Admission: 10/09/17 Attend Phys: Michelle Mead MD Discharge: 10/12/17 Date of : 58 Report #: [id number] pale. External ear looks healthy and normal. NECK: Supple. CHEST: Air movement equal bilateral. No wheezing, no crackles, no rhonchi. HEART: S1, S2, no murmur. ABDOMEN: Benign, soft, lax, nontender. EXTREMITIES: Lower extremity: No edema, no calf tenderness. PSYCHIATRIC: Mood and affect slightly anxious, appropriate, good insight and judgment. NEUROLOGIC: Cranial nerves grossly normal. Moving 4 extremities spontaneously. No focal weakness. LYMPHATICS: No swollen lymph nodes. LABORATORY DATA: White blood count of 3, hemoglobin of 8.1 and platelets of 140. Her INR is 1.3. Her creatinine is 0.9, potassium 4.3, sodium 138. BNP was elevated. Her MRSA is negative. Rheumatoid factor was negative. Repeat GREG titer is pending. During the previous hospitalization, she had anti-double stranded DNA not elevated, antismooth muscle antibody was also within normal range, and EMERGENCY ROOM TECH antibody was also within normal. Rheumatoid factor was also within normal range. IMPRESSION: 1. History of pulmonary emboli. 2. Anemia. 3. Pulmonary infiltrates. The patient had pulmonary infiltrates noted on her CT scan in July, at the same time she presents with a pulmonary embolus. There is a question if she has antiphospholipid antibody syndrome. She had nonspecific arthritis by history, although no arthritis at this point. Her BNP is slightly elevated. Her echocardiogram was normal with normal ejection fraction. The infiltrate on the CT scan has broad differential diagnosis. This includes potential fluid overload; however, multisystem rheumatological disease is part of the differential diagnosis. With a history of anemia, joint pain and pulmonary infiltrate, I would recommend evaluation by a varnish finisher. I did recommend for her to continue the anticoagulation. She needs a followup imaging as an outpatient in a couple of months. Pneumonia still in the differential diagnosis. She received Zosyn during this hospital stay. Recommend discharging her on doxycycline for [address] [address] CONSULTATION Name: FREDI URRUTIA Room: [address] IN M.R.#: [id number] Admission: 10/09/17 Attend Phys: Michelle Mead MD Discharge: 10/12/17 Date of : 58 Report #: [id number] Thank you for the consult. <ELECTRONICALLY SIGNED> By: Harley Duncan MD 10/13/17 0944 1309 [id number] Duncan MD /nt
[2017-10-13 14:10] LABS: GLOBULIN TOTAL 2.2 g/dL (2.2-3.9); M-SPIKE Not Observed g/dL (Not Observed)
== END 2017-10-12 16:45 | disposition home or self-care (01) | DRG 808 ==
LOC: M.ERS 16:06 → M.3W 18:37 → M.TBA-ER 18:37 → M.3W 20:35
PROVIDERS: Family Medicine; Internal Medicine Hematology & Oncology; ADMIT Internal Medicine
PROC: 30233N1 Transfusion of Nonautologous Red Blood Cells into Peripheral Vein, Percutaneous Approach (ICD-10-PCS; principal; 2017-10-11)
DX: D59.1 Other autoimmune hemolytic anemias (principal); J18.9 Pneumonia, unspecified organism; J96.01 Acute respiratory failure with hypoxia; E43 Unspecified severe protein-calorie malnutrition; I50.21 Acute systolic (congestive) heart failure; I11.0 Hypertensive heart disease with heart failure; I26.99 Other pulmonary embolism without acute cor pulmonale; R65.10 Systemic inflammatory response syndrome (SIRS) of non-infectious origin without acute organ dysfunction; D61.818 Other pancytopenia; E05.00 Thyrotoxicosis with diffuse goiter without thyrotoxic crisis or storm; E87.6 Hypokalemia; D50.9 Iron deficiency anemia, unspecified; Z86.718 Personal history of other venous thrombosis and embolism; Z86.711 Personal history of pulmonary embolism; Z86.73 Personal history of transient ischemic attack (TIA), and cerebral infarction without residual deficits; Z79.01 Long term (current) use of anticoagulants; Z68.24 Body mass index [BMI] 24.0-24.9, adult

== ENCOUNTER → 2018-07-09 | Outpatient (CLI) | payer OTHER ==
[~2018-07-09] MED LIST changes: +BENTYL 10 MG CA10 M1 PO; +DOXYCYCLINE 10100 MG PO; +PREDNISONE 20 M20 MG PO; +TRANSDERM-SCOP1 EACH TRANSDERM
== END ==
LOC: M.RAD 17:10
DX: J98.4 Other disorders of lung (principal)